=== PATIENT | female | born 1950 | race Caucasian/White ===

== ENCOUNTER 2021-02-20 11:52 | Outpatient (CLI) | payer OTHER | END 2021-02-20 11:55 | disposition home or self-care (01) | LOC: SONOGRAMA 11:52 | PROVIDERS: ATTEND Pathology Anatomic Pathology & Clinical Pathology | DX: D34 Benign neoplasm of thyroid gland (principal); E04.8 Other specified nontoxic goiter; E04.2 Nontoxic multinodular goiter ==